=== PATIENT | female | born 1940 | race Caucasian/White ===

== ENCOUNTER 2018-07-02 07:52 | Emergency (ER) | payer OTHER, SELFPAY ==
[~2018-07-02] VITALS: Ht 165.1 cm; Wt 93.9 kg
[~2018-07-02 07:52] MED LIST: BENADRYL25 MG PO; CALCIUM 500+D1 EAC2 PO; CEPHALEXIN 500500 M3 PO; CIPROFLOXACIN250 M2 PO; COLACE100 MG PO; COUMADIN 5 MG TA5 M1 PO; COUMADIN PO; ENOXAPARIN40 MG/0.1 SUBQ; HYDROCODON-ACE1 EAC7; KEFLEX500 MG; LEVOTHYROXIN0.125 M1 PO; MEDROL DOSPAK21 TA1; METAMUCIL PAC1 UDPK1 PO; MOBIC15 MG PO; MOM PO; MULTIVITAMINS1 EAC7 PO; NORCO 5-325 TA1 EACH PO; ONDANSETRON HCL4 M2 PO; OXYCODONE HCL5 M1 PO; PERCOCET 5-3251 EACH PO; PHENERGAN 25 MG25 M1 PO; PRILOSEC 20 MG20 MG PO; PROPAFENONE 22225 M1 PO; RYTHMOL225 MG PO; TRANSDERM-SCO1 PATC1 TRANSDERM; VICODIN; VITAMIN D31000 UNI2 PO; WELCHOL; WELCHOL 625 MG625 M1; WELCHOL 625 MG625 MG PO; calcium + D
[2018-07-02] MEDS ORDERED: TESSALON PERLE100 MG PO (09:04)
[2018-07-02] MEDS ORDERED: FLEXERIL PO (09:04)
[2018-07-02 09:24] VITALS: BP 102/56
== END 2018-07-02 09:25 | disposition home or self-care (01) ==
LOC: M.ERS 07:52
DX: S20.211A Contusion of right front wall of thorax, initial encounter (principal); W01.0XXA Fall on same level from slipping, tripping and stumbling without subsequent striking against object, initial encounter; Y93.89 Activity, other specified; Y92.89 Other specified places as the place of occurrence of the external cause; Y99.8 Other external cause status; Z85.828 Personal history of other malignant neoplasm of skin; Z96.651 Presence of right artificial knee joint; I48.91 Unspecified atrial fibrillation; E89.0 Postprocedural hypothyroidism; Z88.5 Allergy status to narcotic agent; Z88.8 Allergy status to other drugs, medicaments and biological substances

== ENCOUNTER → 2019-05-30 | Day surgery (SDC) | payer OTHER ==
[~2019-05-30] MED LIST changes: +FLEXERIL PO; +LEVOXYL112 MCG PO; +OMEPRAZOLE 20 M20 M1 PO; +RYTHMOL SR225 MG PO; +TESSALON PERLE100 MG PO
[2019-05-30 07:47] LABS: HEMATOCRIT 37.6 % (37.0-47.0); HEMOGLOBIN 12.8 gm/dL (12.0-15.0); MCH 30.5 pg (26.0-34.0); MCHC 34.1 g/dL (28.0-37.0); MCV 89.3 fL (80.0-100.0); MPV 8.1 fl. (7.2-11.1); RBC 4.21 mil/uL (4.20-5.00); RDW-CV 13.8 % (10.5-14.5)
[2019-05-30 07:54] LABS: CALCIUM 8.6 mg/dL (8.5-10.1); CREATININE 1.1 mg/dL (0.6-1.3); POTASSIUM 3.7 mmol/L (3.5-5.1)
[2019-05-30 07:56] LABS: APTT 27.1 Seconds (25.0-31.3); INR 1.1; PROTIME 10.8 Seconds (9.20-11.50)
[2019-05-30 07:59] LABS: ALBUMIN 3.5 g/dL (3.4-5.0); TOTAL BILIRUBIN 1.3 mg/dL (<0.1-1.0); TOTAL PROTEIN 6.9 g/dL (6.4-8.2)
--- NOTE | 2019-05-30 09:35 | EKG ---
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
--- NOTE | 2019-05-31 17:06 | PATH ---
[address] [address] PATHOLOGY RPT PROCEDURE Name: CHAPINCITO WHITAKER Room: [facility].R.#: [id number] Admission: 05/30/19 Date of : 42 Discharge: Report #: [id number] Path Case #: [id number] [facility] Accession Number: [id number] . 01 Material submitted: . forearm - RIGHT FOREARM LIPOMA. Modifiers: right . 01 Clinical history: . Mass right arm . 02 Diagnosis: Right forearm lipoma: - Consistent with lipoma. (BAUTISTA:marcelino; 05/31/2019) [facility] 05/31/2019 1605 Local . 02 Electronically signed: . Matt Delgado MD, Pathologist NPI- [id number] . 01 Gross description: . The specimen is received in formalin, labeled "Chapincito Whitaker right forearm lipoma", is an irregular fragment of yellow lobulated adipose tissue covered by a thin briseno-white membrane measuring 2.5 x 2.2 x 0.7 cm. Serially sectioned to show a matos-yellow homogeneous cut surface with no discrete hemorrhage or necrosis. Representatively submitted in A1. (SWS; 05/30/2019). [facility] 05/31/2019 1605 Local . 02 Pathologist provided ICD-10: D17.79 . 02 CPT . 584061 Specimen Comment: A courtesy copy of this report has been sent to Specimen Comment: [phone], . Specimen Comment: Report sent to / DR TORRES Performed at: [address] [facility] [address], [place], [place] [id number] MD Rickie Blackmon MD Phone: [phone] Performed at: [address] [facility] [address] [place], [place] [id number] MD Matt Delgado MD Phone: [phone]
--- NOTE | 2019-06-15 08:52 | OP ---
[address] [address] OPERATIVE REPORT Name: CHAPINCITO GREEN Room: [facility].R.#: [id number] Admission: 05/30/19 Attend Phys: Gallo Laugna Discharge: Date of : 42 Report #: [id number] THIS REPORT FOR: //name// CC: Gallo Leon DATE OF SERVICE: 05/30/2019 PREOPERATIVE DIAGNOSIS: Right arm mass, 1 cm, benign. POSTOPERATIVE DIAGNOSIS: Right arm mass, 1 cm, benign. OPERATION: Excision of 1 cm right forearm mass, 1 cm, benign. SURGEON: Gallo Laguna MD Dictation Ends Here. <ELECTRONICALLY SIGNED> By: Gallo Laguna MD 06/15/19 0852 0958 1005Gallo Laguna MD /nt
--- NOTE | 2019-06-30 08:40 | OP ---
[facility] [address] [place] [address] OPERATIVE REPORT Name: CHAPINCITO GREEN Room: [facility]..#: [id number] Admission: 05/30/19 Attend Phys: Gallo Laguna Discharge: Date of : 42 Report #: [id number] THIS REPORT FOR: //name// CC: Gallo Roseela Cheyenne DATE OF SERVICE: 05/30/2019 ADDENDUM SURGEON: Gallo Laguna MD ANESTHESIA: General. ESTIMATED BLOOD LOSS: Minimal. SPECIMEN: Right arm mass. DESCRIPTION OF PROCEDURE: After informed consent was obtained, the patient was brought to the operating room and placed supine. SCDs were placed and working, preoperative antibiotics were administered, general anesthesia was induced. The area was anesthetized with 1 mL of anesthetic solution. This was a lower arm, forearm, mass. A 1-cm incision was made. Dissection was carried down through the subcutaneous skin. The lipoma was encountered and excised with cautery. The skin was then closed with running 4-0 Monocryl. Incision was dressed with sterile Steri-Strips and gauze. COMPLICATIONS: None. DISPOSITION: The patient was taken to recovery in satisfactory condition. <ELECTRONICALLY SIGNED> By: Gallo Laguna MD 06/30/19 0840 0845 [id number] Laguna MD /nt
== END | disposition home or self-care (01) ==
LOC: M.SUR 07:07
PROVIDERS: Surgery
DX: R22.41 Localized swelling, mass and lump, right lower limb (principal); D17.21 Benign lipomatous neoplasm of skin and subcutaneous tissue of right arm; Z79.899 Other long term (current) drug therapy; Z88.8 Allergy status to other drugs, medicaments and biological substances; Z79.01 Long term (current) use of anticoagulants; Z98.890 Other specified postprocedural states

== ENCOUNTER → 2019-08-07 | Outpatient (CLI) | payer OTHER | LOC: M.ULTRA 13:10 | DX: R22.31 Localized swelling, mass and lump, right upper limb (principal) ==

== ENCOUNTER 2019-11-06 14:14 | Emergency (ER) | payer MEDICARE ==
[~2019-11-06] VITALS: Ht 165.1 cm; Wt 91.2 kg
[2019-11-06] MEDS ORDERED: HYDROCODON-ACE1 EAC8 PO (14:27)
[2019-11-06] MEDS ORDERED: PENICILLIN V P500 MG PO ×2 (15:24→15:25)
[2019-11-06] MEDS ORDERED: ZOFRAN ODT4 MG PO ×2 (15:24→15:25)
[2019-11-06 15:45] VITALS: BP 130/65
== END 2019-11-06 15:50 | disposition home or self-care (01) ==
LOC: M.ERS 14:14
DX: K04.7 Periapical abscess without sinus (principal); R22.0 Localized swelling, mass and lump, head; I48.91 Unspecified atrial fibrillation; Z88.5 Allergy status to narcotic agent; Z88.6 Allergy status to analgesic agent; Z88.8 Allergy status to other drugs, medicaments and biological substances; Z96.651 Presence of right artificial knee joint; Z85.828 Personal history of other malignant neoplasm of skin

== ENCOUNTER 2021-02-24 12:57 | Inpatient (IN) | payer OTHER ==
[~2021-02-24] VITALS: Ht 165.1 cm; Wt 55.5 kg
[~2021-02-24 12:57] MED LIST changes: +HYDROCODON-ACE1 EAC8 PO; +PENICILLIN V P500 MG PO; +ZOFRAN ODT4 MG PO
[2021-02-24 13:32] LABS: ABSOLUTE BASOPHILS 0.1 thou/uL (0.0-0.2); ABSOLUTE EOSINOPHILS 0.1 thou/uL (0.0-0.7); ABSOLUTE LYMPHOCYTES 1.1 thou/uL (0.8-5.3); ABSOLUTE MONOCYTES 0.6 thou/uL (0.0-1.2); ABSOLUTE NEUTROPHILS 4.1 thou/uL (1.6-8.1); BASOPHILS 1.4 %; EOSINOPHILS 0.9 %; HEMATOCRIT 38.7 % (37.0-47.0); HEMOGLOBIN 13.5 gm/dL (12.0-15.0); LYMPHOCYTES 18.3 %; MCHC 34.8 g/dL (28.0-37.0); MONOCYTES 9.9 %; MPV 7.9 fl. (7.2-11.1); NUCLEATED RBCS 0 /100WBC; PLATELET COUNT* 283 thou/uL (150-400); POLYS 69.5 %; RBC 4.35 mil/uL (4.20-5.00); RDW-CV 13.6 % (10.5-14.5); WBC 5.9 thou/uL (4.0-11.0)
[2021-02-24 13:34] VITALS: BP 171/78
[2021-02-24 13:38] LABS: CALCIUM 8.9 mg/dL (8.5-10.1); POTASSIUM 4.2 mmol/L (3.5-5.1)
[2021-02-24 13:42] LABS: INR 2.2; PROTIME 22.4 Seconds (9.20-11.50)
[2021-02-24 13:43] LABS: ALBUMIN 3.5 g/dL (3.4-5.0); TOTAL PROTEIN 7.1 g/dL (6.4-8.2)
[2021-02-24] MEDS ORDERED: JANTOVEN4 MG PO (13:55)
[2021-02-24] MEDS ORDERED: LORAZEPAM 0.50.5 MG PO (13:57)
--- NOTE | 2021-02-24 15:37 | EKG ---
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 : 1940 Requested By: Bryn Beckman Order Number: [id number] MD: Clitfon Tejada Measurements Intervals [place] Rate: 62 P: 53 MS: 230 QRS: -33 QRSD: 196 T: 125 QT: 470 QTc: 478 Interpretive Statements Sinus rhythm Prolonged MS interval Left bundle branch block Compared to ECG 05/30/2019 07:33:06 First degree AV block now present Electronically Signed On 02-24-2021 15:37:03 CDT by Clifton Tejada [email or web address] <ELECTRONICALLY SIGNED> By: Clifton Tejada MD, [facility] 02/24/21 1537 1351 1351 Clifton Tejada MD, [facility] /EPI
[2021-02-24 17:18] VITALS: BP 160/61
[2021-02-24 18:00] VITALS: BP 148/50
--- NOTE | 2021-02-24 20:41 | NUR ---
INITIATED TRANSFER TO [facility]. RECORDS FAXED. IMAGES CLOUDED. [facility] DO NOT HAVE ICU OR TELE BEDS. DR. AGUIRRE NOTIFIED. DAUGHTER REQUESTS US TO TRY [facility] NEXT. INITIATED TRANSFER WITH [facility].
[2021-02-24 22:01] VITALS: BP 155/65
--- NOTE | 2021-02-24 23:00 | NUR ---
[facility] DECLINED DUE TO LACK OF BEDS. [facility] AND [facility] ALSO DECLINED DUE TO LACK OF BEDS. DR. AGUIRRE INFORMED. [facility], PATIENT'S RN INFORMED. CM NOTIFIED TO INITIATE IN THE MORNING, AND THE FAMILY WOULD PREFER [facility] OR [facility]. [facility] IS THEIR LAST CHOICE. THEY DO REALIZE THAT [place], AND THEY MAY NOT HAVE A CHOICE.
[2021-02-24 23:49] VITALS: BP 106/44
[2021-02-25 04:17] VITALS: BP 125/50
[2021-02-25 08:11] VITALS: BP 134/44
[2021-02-25 08:29] LABS: ABSOLUTE BASOPHILS 0.1 thou/uL (0.0-0.2); ABSOLUTE LYMPHOCYTES 1.5 thou/uL (0.8-5.3); ABSOLUTE MONOCYTES 0.5 thou/uL (0.0-1.2); ABSOLUTE NEUTROPHILS 5.5 thou/uL (1.6-8.1); BASOPHILS 0.8 %; EOSINOPHILS 0.1 %; HEMATOCRIT 37.1 % (37.0-47.0); HEMOGLOBIN 12.8 gm/dL (12.0-15.0); LYMPHOCYTES 19.3 %; MCH 30.5 pg (26.0-34.0); MCHC 34.4 g/dL (28.0-37.0); MCV 88.7 fL (80.0-100.0); MONOCYTES 6.9 %; MPV 7.7 fl. (7.2-11.1); NUCLEATED RBCS 0 /100WBC; PLATELET COUNT* 259 thou/uL (150-400); POLYS 72.9 %; RBC 4.19 mil/uL (4.20-5.00); RDW-CV 13.4 % (10.5-14.5); WBC 7.6 thou/uL (4.0-11.0)
[2021-02-25 08:39] LABS: CALCIUM 8.5 mg/dL (8.5-10.1); INR 2.1; POTASSIUM 3.8 mmol/L (3.5-5.1); PROTIME 21.4 Seconds (9.20-11.50)
--- NOTE | 2021-02-25 11:23 | NUR ---
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 GARTH MAIERT
[2021-02-25 12:00] VITALS: BP 129/44
--- NOTE | 2021-02-25 12:01 | NUR ---
Pt is A&O. Resides at home, granddtr and 2 great grandkids live with her. Independent. No DME. No hx of HH or SNF. Plan to transfer Pt to a higher level of care for neurosurgery. CM contacted [facility] transfer team, they are currently full and not accepting referrals from outside of their hospital. CM contacte [facility], they accepted Pt's referral and will review with their Drs to determine if they are able to accept the transfer. Dr Patterson's contact info provided. [facility] transfer p:[phone]
--- NOTE | 2021-02-25 12:48 | CON ---
[address] [address] CONSULTATION Name: CHAPINCITO GREEN Room: [address] ADM IN M.R.#: [id number] Admission: 02/24/21 Attend Phys: Payton Patterson MD Discharge: Date of : 42 Report #: [id number] THIS REPORT FOR: cc: Kristie Leon MD,Kristie Michaud,Vaibhav Avendano MD ~ DOC #: [id number] Vaibhav Michaud MD DATE OF CONSULTATION: 02/24/2021 HISTORY OF PRESENT ILLNESS: This is a 80-year-old female patient who was evaluated by me for what looks like a pretty unusual symptoms. I have first talked to the patient's son and granddaughter. Subsequently, I was able to talk to the patient's daughter. The patient herself is confused and does not provide much history. Initial impression was that the patient's symptoms started today, but then daughter confirmed that this patient is having memory issues for last few months. She was depressed because of the 's . They thought that was because of depression, but in hindsight, she was having that and one time, even she had urinary incontinence, although no seizure activity was noticed. She is anticoagulated. Apparently, she has AFib and her INR was 2.2. When she came into the Emergency Room called me that she has speech difficulty and a CT was unremarkable. I suggested doing a CT angio because of that and there is confusion after that. CT angio and even CT scan clearly shows abnormality in the temporal lobe and pretty significant edema there. CT angio shows that there is at least some enhancement in that location. 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 She does not have any seizure activity the best we can tell. REVIEW OF SYSTEMS: Positive for her being on anticoagulation. She had a knee replacement in the past. She had a thyroid removed in 2011. She has a history of AFib and apparently she takes Coumadin because she does not tolerate other anticoagulant. That was a relevant 14-point review of system. PAST MEDICAL HISTORY: Positive for atrial fibrillation. FAMILY HISTORY: Unremarkable. SOCIAL HISTORY: She says she does not drink alcohol or smoke and family confirmed that. PHYSICAL EXAMINATION: The patient's examination indicate this patient is alert, but she is completely confused. She does not know what month it is. I tried to ask her the president, she says she does not like him, but she cannot name him. When I asked him who was before him again she says she liked him, but she cannot name him either though looks like [place] [address] CONSULTATION Name: CHAPINCITO GREEN Room: [address] [place] M.R.#: [id number] Admission: 02/24/21 Attend Phys: Payton Patterson MD Discharge: Date of : 42 Report #: [id number] naming. When I give her some time, she was ultimately able to tell me the month, but could not tell me the date. I do not know how much it is new and how much is old even after talking to the family for a long time. Cranial nerve and neuromuscular examinations appear pretty much noncontributory. The best I can tell, I am not sure about hemianopsia. She sometimes did well there and sometimes does not do well there. Her cardiac and respiratory examination is unremarkable. Blood pressure is 148/50, pulse is 76, temperature is 97.7. IMPRESSION AND PLAN: This is a patient whose diagnosis is difficult. 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 Possibility of herpes encephalitis is there, but I agree it is less likely. She needs more workup to confirm the diagnosis. A spinal tap can be done, but with this much edema, the possibility of uncal herniation is there, but she is also anticoagulated with INR of 2.2 and that has to be the worse if we need to do the spinal tap. This patient needs neurosurgical evaluation. I called Dr. Patterson and asked to transfer this patient to [facility] and I called the nurse and they are already working on it. In the meantime, I am going to go ahead and give her a dose of acyclovir until the diagnosis is confirmed. She got some contrast and she is going to get acyclovir. Her GFR is okay, but I am going to go ahead and give her some normal saline for 24 hours to make sure she does not run into any renal problems. I was later unable to reach the patient's daughter who said she is a medical personnel. I talked to her about the MRI and need for a transfer the possibility of a tumor versus some chance of herpes encephalitis and she understands all those. I told her that I will give her acyclovir and I discussed the pros and cons of it and this patient needs further workup. She will need an EEG. She will need a contrast enhanced MRI, although CT scan already shows enhancement and the further management will be decided by the direction of the neurosurgery. I spent more than 50 minutes of time taking care of this patient today and majority was spent counseling and coordinating. MD RICHARD Thorpe/MANISH/SOTashia <ELECTRONICALLY SIGNED> By: Vaibhav Michaud MD 02/25/21 1248 [id number] Michaud MD /nt
[2021-02-25 16:00] VITALS: BP 130/49
--- NOTE | 2021-02-25 19:06 | NUR ---
PT TO TRANSFER TO [facility] VIA EMS.SHEET FAXED TO [facility].AWAITING EMS ARRIVAL.PT COMFORTABLE.VSS ON RA.PT HAS BEEN SR BBB ON MONITOR.NOTHING FURTHER.CLWR.WCTM
== END 2021-02-25 23:07 | disposition short-term general hospital (02) | DRG 64 ==
LOC: M.ERS 12:57 → M.TBA-ER 14:24 → M.2W 14:24
PROVIDERS: Emergency Medicine Emergency Medical Services; ADMIT Internal Medicine; ATTEND Internal Medicine
DX: I63.9 Cerebral infarction, unspecified (principal); G93.41 Metabolic encephalopathy; D68.59 Other primary thrombophilia; D49.6 Neoplasm of unspecified behavior of brain; R47.01 Aphasia; I48.91 Unspecified atrial fibrillation; Z96.651 Presence of right artificial knee joint; Z20.822 Contact with and (suspected) exposure to COVID-19; Z85.828 Personal history of other malignant neoplasm of skin; Z85.850 Personal history of malignant neoplasm of thyroid; Z79.899 Other long term (current) drug therapy; Z88.5 Allergy status to narcotic agent; Z88.8 Allergy status to other drugs, medicaments and biological substances; Z79.01 Long term (current) use of anticoagulants